=== PATIENT | male | born 1970 | race Caucasian/White ===

== ENCOUNTER 2017-03-25 10:54 | Inpatient (IN) | payer OTHER ==
[~2017-03-25] VITALS: Ht 175.3 cm; Wt 104.0 kg
[~2017-03-25 10:54] MED LIST: ALEVE220 MG PO; PRAVACHOL40 MG PO; TENORMIN25 MG PO; ZOCOR40 MG PO
[2017-03-25 11:21] LABS: ADD MIUA? YES; BILIRUBIN NEGATIVE; BLOOD MODERATE; COLOR YELLOW ((YELLOW)); GLUCOSE (STRIP) NEGATIVE; KETONES NEGATIVE; LEUKOCYTES NEGATIVE; NITRITE NEGATIVE; PROTEIN (STRIP) 30; SPECIFIC GRAVITY 1.029 (1.000-1.030); UROBILINOGEN 0.2 MG/DL (0.2-1.0)
[2017-03-25 11:28] LABS: BACTERIA NONE SEEN /HPF; EPITHELIAL CELLS RARE /HPF; HYALINE CASTS 0-5 /LPF; MUCUS 4+ /LPF; RED BLOOD CELLS 0-5 /HPF (0-5); UCUL ADDED? NO; WHITE BLOOD CELLS 0-5 /HPF (0-5)
[2017-03-25 12:43] LABS: HEMATOCRIT 46.9 % (38.0-50.0); MCH 30.4 PG (29.0-34.0); MCHC 34.8 G/DL (30.0-36.0); MCV 87.3 FL (86-99); MEAN PLAT.VOLUME 11.8 uM^3 (9.0-12.4); PLATELET COUNT 252 K/uL (156-360); RBC DIS.WIDTH-CV 11.9 % (11.8-14.6); RBC DIS.WIDTH-SD 38.2 % (39-53); RED BLOOD COUNT 5.37 M/uL (4.00-5.50); WHITE BLOOD COUNT 18.4 K/uL (4.1-10.2)
[2017-03-25 12:56] LABS: CHLORIDE 100 mEq/L (99-109); POTASSIUM 4.1 mEq/L (3.7-5.4); SODIUM 135 mEq/L (136-147)
[2017-03-25 12:59] LABS: GLUCOSE 120 mg/dL (70-99)
[2017-03-25 13:00] LABS: ANION GAP 9 MEQ/L (2-14); TOTAL BILIRUBIN 1.1 mg/dL (0.0-1.0)
[2017-03-25 13:02] LABS: ALKALINE PHOSPHATASE 91 IU/L (3-129); GFR ESTIMATE (CALCULATED) > 59 mL/min/ (58.99-99999)
[2017-03-25 13:03] LABS: UREA NITROGEN (BUN) 14 mg/dL (9-23)
[2017-03-25 13:06] LABS: LIPASE 90 U/L (1.0-51.0)
[2017-03-25 13:46] LABS: AMYLASE 100 IU/L (1-118)
[2017-03-25] MEDS ORDERED: LISINOPRIL10 MG PO (16:25)
[2017-03-25] MEDS ORDERED: PRAVASTATIN SOD40 MG PO (16:26)
[2017-03-25 17:06] VITALS: BP 161/101
[2017-03-25 17:13] LABS: TROP-I INTERPRETATION NEGATIVE; TROPONIN-I < 0.01 ng/mL (0.0-0.30)
[2017-03-25 23:07] LABS: TROP-I INTERPRETATION NEGATIVE; TROPONIN-I < 0.01 ng/mL (0.0-0.30)
[2017-03-25 23:52] VITALS: BP 136/79
[2017-03-26 04:39] LABS: HEMATOCRIT 42.5 % (38.0-50.0); MCH 30.3 PG (29.0-34.0); MCHC 34.6 G/DL (30.0-36.0); MCV 87.6 FL (86-99); MEAN PLAT.VOLUME 11.5 uM^3 (9.0-12.4); PLATELET COUNT 212 K/uL (156-360); RBC DIS.WIDTH-CV 11.9 % (11.8-14.6); RBC DIS.WIDTH-SD 38.4 % (39-53); RED BLOOD COUNT 4.85 M/uL (4.00-5.50); WHITE BLOOD COUNT 18.6 K/uL (4.1-10.2)
[2017-03-26 04:55] LABS: CHLORIDE 104 mEq/L (99-109); POTASSIUM 4.6 mEq/L (3.7-5.4); SODIUM 137 mEq/L (136-147)
[2017-03-26 04:57] LABS: GLUCOSE 117 mg/dL (70-99)
[2017-03-26 04:58] LABS: ANION GAP 7 MEQ/L (2-14)
[2017-03-26 05:00] LABS: GFR ESTIMATE (CALCULATED) > 59 mL/min/ (58.99-99999)
[2017-03-26 05:01] LABS: UREA NITROGEN (BUN) 9 mg/dL (9-23)
[2017-03-26 05:05] LABS: TROP-I INTERPRETATION NEGATIVE; TROPONIN-I < 0.01 ng/mL (0.0-0.30)
[2017-03-26 07:21] VITALS: BP 151/94
[2017-03-26 10:52] VITALS: BP 151/94
== END 2017-03-26 14:50 | disposition home or self-care (01) | DRG 440 ==
LOC: EME 10:54 → EDOF 14:41 → ENRESERV 14:42 → 5SOUTH 16:55
PROVIDERS: Internal Medicine
DX: K85.20 Alcohol induced acute pancreatitis without necrosis or infection (principal); I10 Essential (primary) hypertension; E78.5 Hyperlipidemia, unspecified
CPT/HCPCS: 74176; 76705; 80048; 80053; 81003; 82150; 83690; 84484; 85027; 99281; 99285; J1170; J1650; J2405; J3010; J7030; J7042; S0028